=== PATIENT | male | born 1995 | race Caucasian/White ===

== ENCOUNTER 2020-02-23 10:58 | Outpatient (REF) | payer OTHER, SELFPAY | END 2020-02-23 10:59 | disposition home or self-care (01) | LOC: HO.LAB 10:58 | PROVIDERS: Visit Provider Internal Medicine | DX: Z20.828 Contact with and (suspected) exposure to other viral communicable diseases (principal) | CPT/HCPCS: 87635 ==

== ENCOUNTER 2020-03-05 13:42 | Outpatient (REF) | payer OTHER, SELFPAY | END 2020-03-05 13:43 | disposition home or self-care (01) | LOC: HO.LAB 13:42 | PROVIDERS: Visit Provider Internal Medicine | DX: Z20.828 Contact with and (suspected) exposure to other viral communicable diseases (principal) | CPT/HCPCS: C9803; U0003 ==

== ENCOUNTER 2020-03-15 14:53 | Outpatient (REF) | payer OTHER, SELFPAY | END 2020-03-15 14:54 | disposition home or self-care (01) | LOC: HO.LAB 14:53 | PROVIDERS: PCP Nurse Practitioner Family; Visit Provider Internal Medicine | DX: Z20.828 Contact with and (suspected) exposure to other viral communicable diseases (principal) | CPT/HCPCS: C9803; U0003 ==

== ENCOUNTER 2020-05-27 19:19 | Outpatient (REF) | payer OTHER, SELFPAY ==
--- NOTE | 2020-05-27 19:40 | MR_ITS ---
EXAMINATION: MR LUMBAR SPINE WITHOUT CONTRAST CLINICAL INFORMATION: Low back pain. Bilateral lower extremity pain and numbness. COMPARISON: CT scan of the lumbar spine 01/31/2017. TECHNIQUE: MRI of the lumbar spine was obtained using routine sequences without contrast. FINDINGS: Alignment is normal. Vertebral heights are preserved. No acute bone marrow signal changes. Intervertebral disc height and signal intensity is maintained at all levels. Annular contours are normal and there is no canal or neuroforaminal compromise. No mass effect on the traversing or foraminal nerve roots. The tip of the conus medullaris is located at L1-L2. No mass effect on the conus. Visualized distal cord signal intensity is normal. Limited visualization the retroperitoneal anatomy reveals no abnormal finding. Psoas and paraspinal muscle groups are symmetric. MR/MR lumbar spine wo con IMPRESSION: Normal MRI of the lumbar spine.
== END 2020-05-27 19:20 | disposition home or self-care (01) ==
LOC: HO.MRI 19:19
PROVIDERS: PCP Nurse Practitioner Family; Visit Provider Nurse Practitioner Family
DX: M54.5 Low back pain (principal); M54.10 Radiculopathy, site unspecified
CPT/HCPCS: 72148

== ENCOUNTER 2020-09-29 10:52 | Outpatient (REF) | payer OTHER, SELFPAY ==
[2020-09-29 13:17] LABS: MANUAL DIFF FLAG NO
[2020-09-29 13:32] LABS: Basophils Absolute Auto 0.1 X10*3/uL (0.0-0.2); Basophils Percent Auto 1.3 % (0-2); Eosinophils Absolute Auto 0.1 X10*3/uL (0.0-0.4); Eosinophils Percent Auto 1.6 % (0-4); Hemoglobin 14.6 g/dl (14.0-18.0); Imm Gran Abs Auto 0.03 X10*3/uL (0.00-0.03); Imm Gran Pct Auto 0.5 % (0.0-0.4); Lymphocytes Absolute Auto 2.1 X10*3/uL (1.2-4.9); Lymphocytes Percent Auto 33.9 % (20-40); Mean Corpuscular HGB Conc 32.4 g/dl (31.0-36.0); Mean Corpuscular Hemoglobin 30.5 pg (27.0-33.0); Mean Corpuscular Volume 94.1 fL (80-98); Mean Platelet Volume 10.1 fL (9.4-12.4); Monocytes Absolute Auto 0.5 X10*3/uL (0.1-1.2); Monocytes Percent Auto 8.6 % (2-11); Neutrophils Absolute Auto 3.4 X10*3/uL (2.0-8.3); Neutrophils Percent Auto 54.1 % (45-73); Platelet Count 260 X10*3/uL (160-400); Red Blood Count 4.78 X10*6/uL (4.60-5.80); White Blood Count 6.3 X10*3/uL (4.8-10.8)
[2020-09-29 14:06] LABS: Alanine Aminotransferase 161 U/L (0-40); Albumin Level 4.6 g/dL (3.5-5.0); Alkaline Phosphatase 76 U/L (39-117); Aspartate Amino Transferase 55 U/L (5-37); Bilirubin Direct 0.2 mg/dL (0.0-0.5); Bilirubin Total 0.6 mg/dL (0.0-1.0); Iron 58 mcg/dL (45-160); Percent Iron Saturation 19 % (15-50); Total Iron Binding Capacity 311 mcg/dL (228-428); Total Protein 7.8 g/dL (6.5-8.0); Unsaturated Iron Binding 253 ug/dL
[2020-09-29 14:20] LABS: Ferritin 259 ng/mL (20-250)
[2020-10-02 00:11] LABS: Anti Nuclear Antibody Screen POSITIVE (NEGATIVE)
[2020-10-02 13:27] LABS: Mitochondrial Antibodies NEGATIVE (NEGATIVE)
[2020-10-05 11:32] LABS: Smooth Muscle Antibody <20 U (<20)
== END 2020-09-29 10:53 | disposition home or self-care (01) ==
LOC: HO.10HDL 10:52
PROVIDERS: PCP Nurse Practitioner Family; Visit Provider Internal Medicine Gastroenterology
DX: R79.89 Other specified abnormal findings of blood chemistry (principal)
CPT/HCPCS: 36415; 80076; 82728; 83540; 85025; 86038; 86039; 86255; 86256

== ENCOUNTER 2020-12-18 11:01 | Outpatient (REF) | payer OTHER, SELFPAY ==
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
== END 2020-12-18 11:02 | disposition home or self-care (01) ==
LOC: HO.HMGCX 11:01
PROVIDERS: PCP Nurse Practitioner Family; Visit Provider Nurse Practitioner Family
DX: Z13.89 Encounter for screening for other disorder (principal)
CPT/HCPCS: 72040

== ENCOUNTER → 2021-01-07 10:12 | Outpatient (BNVA) | payer OTHER, SELFPAY | PROVIDERS: PCP Nurse Practitioner Family; Visit Provider Surgery ==

== ENCOUNTER → 2021-02-08 09:54 | Outpatient (BNVA) | payer SELFPAY | PROVIDERS: PCP Nurse Practitioner Family; Referring Provider Nurse Practitioner Family; Visit Provider Surgery | DX: L05.01 Pilonidal cyst with abscess (principal) | CPT/HCPCS: 99212 ==

== ENCOUNTER 2021-06-25 12:42 | Outpatient (REF) | payer OTHER, SELFPAY ==
[2021-06-25 13:07] LABS: Binax Internal Control QC Valid; Binax Now Covid-19 Ag Negative (Negative)
== END 2021-06-25 12:43 | disposition home or self-care (01) ==
LOC: HO.HMGCLDS 12:42
PROVIDERS: PCP Nurse Practitioner Family; Visit Provider Physician Assistant Medical
DX: Z13.89 Encounter for screening for other disorder (principal)

== ENCOUNTER 2021-07-06 11:46 | Outpatient (REF) | payer OTHER, SELFPAY ==
[2021-07-06 13:57] LABS: Hematocrit 47.9 % (42.0-52.0); Hemoglobin 15.4 g/dl (14.0-18.0); Mean Corpuscular HGB Conc 32.2 g/dl (31.0-36.0); Mean Corpuscular Hemoglobin 30.3 pg (27.0-33.0); Mean Corpuscular Volume 94.1 fL (80.0-98.0); Platelet Count 253 X10*3/uL (160-400); Red Blood Count 5.09 X10*6/uL (4.60-5.80); White Blood Count 6.3 X10*3/uL (4.8-10.8)
[2021-07-06 14:38] LABS: Alanine Aminotransferase 155 U/L (0-40); Albumin Level 4.6 g/dL (3.5-5.0); Alkaline Phosphatase 87 U/L (39-117); Aspartate Amino Transferase 85 U/L (5-37); Bilirubin Direct 0.3 mg/dL (0.0-0.5); Bilirubin Total 0.8 mg/dL (0.0-1.0); Blood Urea Nitrogen 10 mg/dL (9-16); Estimated Glomerular Filt Rate > 60; Lipase 24 U/L (8-78); Total Protein 7.9 g/dL (6.5-8.0)
== END 2021-07-06 11:47 | disposition home or self-care (01) ==
LOC: HO.10HDL 11:46
PROVIDERS: Absent Provider Nurse Practitioner Family; Referring Provider Nurse Practitioner Family; Visit Provider Internal Medicine Gastroenterology
DX: R10.9 Unspecified abdominal pain (principal); R19.4 Change in bowel habit
CPT/HCPCS: 36415; 80076; 82565; 83690; 84520; 85027

== ENCOUNTER 2021-08-09 13:04 | Outpatient (REF) | payer OTHER, SELFPAY ==
--- NOTE | ~2021-08-09 | CT_ITS ---
EXAMINATION: CT ABDOMEN AND PELVIS WITH CONTRAST CLINICAL INFORMATION: Generalized abdominal pain. COMPARISON: Ultrasound abdomen 01/26/2020. TECHNIQUE: Multidetector volumetric images were obtained from the superior aspect of the liver through the pubic symphysis following administration 85 mL of Omnipaque 350 intravenous contrast. Sagittal and coronal reformatted images were obtained on the technologist's workstation. Oral contrast: No This CT examination was performed using dose optimization techniques as appropriate, variously including the following: *Automated exposure control *Adjustment of mA and/or kV according to patient size (this includes techniques or standardized protocols for targeted exams where dose is matched to indication/reason for exam; i.e. extremities or head) *Use of iterative reconstruction technique DLP: 1534 mGy-cm. FINDINGS: LUNG BASES: The visualized lung bases are unremarkable. LIVER, GALLBLADDER, AND BILIARY TREE: The liver is enlarged in size measuring 19 cm in craniocaudad length. It has a normal shape with diffuse hypoattenuation. No focal hepatic lesion or biliary ductal dilatation is present. The gallbladder is unremarkable with no evidence of radiopaque gallstones, gallbladder wall thickening, or obvious pericholecystic inflammatory changes. PANCREAS: Unremarkable. SPLEEN: Unremarkable. ADRENAL GLANDS: Unremarkable. KIDNEYS AND URETERS: The kidneys are normal in size, shape, and attenuation. No hydronephrosis, hydroureter, or calculi seen. No perinephric stranding. BLADDER: Unremarkable. GASTROINTESTINAL TRACT: There is scattered stool and gas seen throughout the colon without significant distention. The small bowel loops are normal caliber. Appendix is normal caliber. No inflammatory process seen in the abdomen. Small shotty lymph nodes seen in the right ileocecal region. ABDOMINAL WALL: There is a small umbilical hernia containing fat. LYMPH NODES: Normal. VASCULAR: Unremarkable. PELVIC VISCERA: The prostate gland is normal size with central gland calcifications. OSSEOUS STRUCTURES: No aggressive lytic or sclerotic process seen. CT/CT abdomen pelvis w con IMPRESSION: No acute intra-abdominal process seen. Diffuse hepatic steatosis with mild hepatomegaly. Fleischner guidelines were followed.
[2021-08-09] MEDS: iohexoL 350 MG/ML 100 ML INFUS..BTL IV (15:45)
== END 2021-08-09 13:05 | disposition home or self-care (01) ==
LOC: HO.CT 13:04
PROVIDERS: PCP Nurse Practitioner Family; Visit Provider Internal Medicine Gastroenterology
DX: R10.84 Generalized abdominal pain (principal); R19.4 Change in bowel habit
CPT/HCPCS: 74177; Q9967

== ENCOUNTER 2021-10-11 12:22 | Outpatient (REF) | payer OTHER, SELFPAY ==
--- NOTE | ~2021-10-11 | XR_ITS ---
EXAMINATION: XR THORACOLUMBAR SPINE CLINICAL INFORMATION: M54.6 - Pain in thoracic spine COMPARISON: CT abdomen and pelvis 08/09/2021, MR lumbar spine 05/27/2020. TECHNIQUE: Thoracic spine is imaged in 3 views. FINDINGS: Normal thoracic segmentation with 12 rib-bearing thoracic vertebrae of normal height and normal thoracic kyphosis. There is a borderline dextrocurvature midthoracic spine. No vertebral compression, spondylolisthesis, or destructive process, or paraspinal soft tissue swelling. Small Schmorl's nodes are seen inferior endplates midthoracic spine. Borderline disc narrowing mid thoracic spine. No erosive change. XR/XR thoracic spine 2V IMPRESSION: -Mild dextrocurvature. Borderline disc narrowing mid thoracic spine. -No vertebral compression, spondylolisthesis, or destructive process.
== END 2021-10-11 12:23 | disposition home or self-care (01) ==
LOC: HO.HMGCX 12:22
PROVIDERS: PCP Nurse Practitioner Family; Visit Provider Nurse Practitioner Family
DX: M54.6 Pain in thoracic spine (principal)
CPT/HCPCS: 72070

== ENCOUNTER 2021-12-13 13:07 | Outpatient (REF) | payer OTHER, SELFPAY ==
[2021-12-13 13:55] LABS: MANUAL DIFF FLAG NO
[2021-12-13 14:01] LABS: Basophils Absolute Auto 0.1 X10*3/uL (0.0-0.2); Basophils Percent Auto 1.4 % (0-2); Eosinophils Absolute Auto 0.1 X10*3/uL (0.0-0.4); Hematocrit 44.6 % (42.0-52.0); Hemoglobin 14.6 g/dl (14.0-18.0); Imm Gran Abs Auto 0.06 X10*3/uL (0.00-0.03); Imm Gran Pct Auto 0.8 % (0.0-0.4); Lymphocytes Percent Auto 28.5 % (20-40); Mean Corpuscular HGB Conc 32.7 g/dl (31.0-36.0); Mean Corpuscular Hemoglobin 30.9 pg (27.0-33.0); Mean Corpuscular Volume 94.3 fL (80.0-98.0); Mean Platelet Volume 9.9 fL (9.4-12.4); Monocytes Absolute Auto 0.7 X10*3/uL (0.1-1.2); Monocytes Percent Auto 9.9 % (2-11); Neutrophils Absolute Auto 4.1 x10*3/uL (2.0-8.3); Neutrophils Percent Auto 57.4 % (45-73); Platelet Count 231 X10*3/uL (160-400); Red Blood Count 4.73 X10*6/uL (4.60-5.80); Red Cell Distribution Width 13.4 % (11.0-16.0); White Blood Count 7.2 X10*3/uL (4.8-10.8)
[2021-12-13 14:08] LABS: Estimated Average Glucose 166 mg/dL; Hemoglobin A1c % 7.4 %
[2021-12-13 14:33] LABS: Alanine Aminotransferase 175 U/L (0-40); Albumin Level 4.8 g/dL (3.5-5.0); Alkaline Phosphatase 90 U/L (39-117); Anion Gap 15 (12-20); Aspartate Amino Transferase 72 U/L (5-37); Bilirubin Total 0.4 mg/dL (0.0-1.0); Blood Urea Nitrogen 11 mg/dL (9-16); Carbon Dioxide 30 mmol/L (22-29); Chloride 101 mmol/L (96-108); Estimated Glomerular Filt Rate > 60; Glucose Fasting 143 mg/dL (60-99); Potassium 4.5 mmol/L (3.3-5.1); Sodium 141 mmol/L (135-145); Total Protein 8.2 g/dL (6.5-8.0)
[2021-12-13 14:45] LABS: TSH reflex Free T4 3.08 uIU/mL (0.32-4.0)
== END 2021-12-13 13:08 | disposition home or self-care (01) ==
LOC: HO.HMGCLDS 13:07
PROVIDERS: PCP Nurse Practitioner Family; Visit Provider Nurse Practitioner Family
DX: R73.01 Impaired fasting glucose (principal)
CPT/HCPCS: 36415; 80053; 83036; 84443; 85025

== ENCOUNTER 2021-12-20 17:00 | Outpatient (RCR) | payer OTHER, SELFPAY ==
--- NOTE | 2021-11-08 19:11 | MHC.PT.EP ---
[facility] [place] Office [place] Office [place] Office [address] [phone] F: [phone] F: [phone] F: [phone] F: [phone] Physical Therapy Plan of Care Date of Evaluation: Date of Surgery: Diagnosis: Thoracic pain. Assessment: Pt is 26 y/o L handed male referred to PT for eval and treat of thoracic pain resulting in decreased tolerance and ability for lifting, bending his back, performing heavy work tasks with L UE, disturbed sleep and, augmented self care secondary to decreased thoracic ROM, increased L > R thoracic mm tissue tension, TTP of L scapulothoracic area, L UE radicular Sx, and pain. Pt is deemed an appropriate candidate to receive skilled PT in order to address his physical limitations to improve his functional ability. Frequency and Duration: The patient will be seen 2 x/ wk x 5 wks. Short Term Goals: Initiate HEP. Improve baseline pain to < 4/10. Residential Goals: I with home program. Pt will no linger be disturbed of sleep d/t thoracic pain. L UE radicular Sx abolished. Pt will no longer have to modify how he performs personal care d/t thoracic pain. Treatment Plan: Modalities to reduce pain, spasms and effusion. Manual therapy to restore motion and function. Therapeutic exercise to improve strength and flexibility. Neuromuscular re-education for posture and balance. Therapeutic activities to return to functional activities of daily living. Electronically signed by: Russ Almaguer PT. Please sign and return to therapist. Thank you for your referral.
--- NOTE | 2021-12-20 19:01 | MHC.PT.DC ---
[facility] [place] Office [place] Office [place] Office [address] Miguel [address] [phone] F: [phone] F: [phone] F: [phone] F: [phone] Physical Therapy Discharge Report Diagnosis: Thoracic pain. Date of Surgery: Date of Evaluation: 11/08/21 Date of Discharge: 12/20/21 Treatments to Date: 9 Cancellations to Date: No Shows to Date: Discharge Status: Independent with HEP Recommend MD Follow-up Discharge Summary: Osmar has been an active and motivated participant in his therapy in and out of the clinic and although he has gained a few strategies and exercises that are helpful temporarily he persists with limiting T-spine pain; his outcome measure is largely unchanged from his evaluation and is recommended to follow up with his MD for his ongoing condition. Electronically signed by: Russ Almaguer PT. Please sign and return to therapist. Thank you for your referral.
== END 2021-12-20 19:04 | disposition home or self-care (01) ==
LOC: HO.PTCHIC 17:00
PROVIDERS: PCP Nurse Practitioner Family; Visit Provider Nurse Practitioner Family
DX: M54.6 Pain in thoracic spine (principal)
CPT/HCPCS: 97014; 97110; 97140; 97161

== ENCOUNTER 2022-06-22 11:02 | Outpatient (REF) | payer OTHER, SELFPAY ==
[2022-06-22 13:59] LABS: MANUAL DIFF FLAG NO
[2022-06-22 14:23] LABS: Basophils Absolute Auto 0.1 X10*3/uL (0.0-0.2); Basophils Percent Auto 1.8 % (0-2); Eosinophils Absolute Auto 0.2 X10*3/uL (0.0-0.4); Eosinophils Percent Auto 3.2 % (0-4); Hemoglobin 14.9 g/dl (14.0-18.0); Imm Gran Abs Auto 0.07 X10*3/uL (0.00-0.03); Imm Gran Pct Auto 1.1 % (0.0-0.4); Lymphocytes Absolute Auto 1.8 X10*3/uL (1.2-4.9); Lymphocytes Percent Auto 29.3 % (20-40); Mean Corpuscular HGB Conc 33.1 g/dl (31.0-36.0); Mean Corpuscular Hemoglobin 31.2 pg (27.0-33.0); Mean Corpuscular Volume 94.3 fL (80.0-98.0); Mean Platelet Volume 10.4 fL (9.4-12.4); Monocytes Absolute Auto 0.6 X10*3/uL (0.1-1.2); Neutrophils Absolute Auto 3.5 x10*3/uL (2.0-8.3); Neutrophils Percent Auto 55.6 % (45-73); Platelet Count 232 X10*3/uL (160-400); Red Blood Count 4.77 X10*6/uL (4.60-5.80); Red Cell Distribution Width 13.4 % (11.0-16.0); White Blood Count 6.2 X10*3/uL (4.8-10.8)
[2022-06-22 14:37] LABS: Estimated Average Glucose 146 mg/dL; Hemoglobin A1c % 6.7 %
[2022-06-22 15:10] LABS: Alanine Aminotransferase 149 U/L (0-40); Albumin Level 4.4 g/dL (3.5-5.0); Alkaline Phosphatase 76 U/L (39-117); Anion Gap 12 (12-20); Aspartate Amino Transferase 58 U/L (5-37); Bilirubin Total 0.6 mg/dL (0.0-1.0); Blood Urea Nitrogen 9 mg/dL (9-16); Calcium 9.5 mg/dL (8.4-10.2); Carbon Dioxide 28 mmol/L (22-29); Chloride 106 mmol/L (96-108); Cholesterol 205 mg/dL; Estimated Glomerular Filt Rate > 60; Glucose Fasting 168 mg/dL (60-99); HDL Cholesterol 43 mg/dL; LDL Cholesterol Calculated 137 mg/dl; Potassium 4.3 mmol/L (3.3-5.1); Sodium 142 mmol/L (135-145); Total Protein 7.5 g/dL (6.5-8.0); Triglycerides 129 mg/dL
== END 2022-06-22 11:03 | disposition home or self-care (01) ==
LOC: HO.HMGCLDS 11:02
PROVIDERS: PCP Nurse Practitioner Family; Visit Provider Nurse Practitioner Family
DX: E11.9 Type 2 diabetes mellitus without complications (principal)
CPT/HCPCS: 36415; 80053; 80061; 83036; 84443; 85025

== ENCOUNTER 2022-11-29 13:08 | Day surgery (SDC) | payer OTHER, SELFPAY ==
[2022-11-29 14:03] VITALS: BP 134/81; PULSE 72; RESP 18; TEMP 36.6; O2SAT 95; BMI 48.8
[2022-11-29 14:15] LABS: Glucose, Whole Blood 151 mg/dL (60-115)
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
--- NOTE | 2022-11-29 14:25 | MHC.SHP ---
Pre-Procedural Eval Section A Date of Service: 11/29/22 The patient is an INPATIENT: No Changes since office visit: No Cold of Flu in the past 2 weeks, No New Medical Problems, No Changes in Medication and No Patient answered all questions The History & Physical has been completed within 30 days and I have reviewed it.: Yes Section B Chief Complaint: Hemorrhage of anus and rectum Allergies: Allergies Allergy/AdvReac Type Severity Reaction Status Date / Time No Known Allergies Allergy Verified 03/27/22 10:24 [No Known Allergies*] Plan I have reviewed the history and physical and performed a pertinent physical examination on my patient. No changes have occurred unless specified. Time Spent With Patient Time: Total time managing care of this patient today ____ minutes.
[2022-11-29] MEDS: Lactated Ringers 1,000 ML 100 ML IVCONT (14:33)
[2022-11-29 15:18] VITALS: BP 115/72; PULSE 79; RESP 16; TEMP 37.1; O2SAT 97
[2022-11-29 15:32] VITALS: BP 110/74; PULSE 80; RESP 20; O2SAT 95
[2022-11-29 15:47] VITALS: BP 116/83; PULSE 77; RESP 20; TEMP 36.8; O2SAT 96
--- NOTE | 2022-11-29 22:24 | OP_ITS ---
DATE OF SERVICE: 11/29/2022 SURGEON: Miguelito Davidson MD INDICATIONS: Rectal bleeding. PREOPERATIVE DIAGNOSIS: POSTOPERATIVE DIAGNOSIS: PROCEDURE PERFORMED: ESTIMATED BLOOD LOSS: COMPLICATIONS: ANESTHESIA: Monitored anesthesia care. ASSISTANTS: SPECIMENS: PROCEDURE: Colonoscopy to the terminal ileum with biopsy. DESCRIPTION OF PROCEDURE: A history and physical was performed. The risks and benefits of the procedure were explained to the patient. Informed consent was obtained. The patient was placed in the left lateral decubitus position. A digital rectal exam was performed and was found to be normal. The Olympus pediatric video colonoscope was introduced into the rectum and advanced to the cecum. The cecum was identified by transillumination, palpation, and identification of ileocecal valve. Examination was performed. The scope was removed. He tolerated the procedure well and was returned to the recovery area in stable condition. FINDINGS: The terminal ileum was examined and appeared normal. The visualized colonic mucosa was normal. The quality of the prep was good. No colitis was identified. Random sigmoid biopsies were obtained to rule out microscopic colitis. In the rectum were multiple less than 10 mL benign-appearing polyps consistent with hyperplastic polyps. Two of these were biopsied. Retroflexed examination did show some small internal hemorrhoids. IMPRESSION: 1. Rectal bleeding. 2. Colon polyps. RECOMMENDATION: Follow up the biopsy results. MD BRYAN Pizarro/SHARI / [id number]
== END 2022-11-29 15:57 | disposition home or self-care (01) ==
PROVIDERS: Visit Provider Internal Medicine Gastroenterology
PROC: 0DJD8ZZ Inspection of Lower Intestinal Tract, Via Natural or Artificial Opening Endoscopic (ICD-10-PCS; CPT 45378; principal; 2022-11-29 14:20)
DX: K62.5 Hemorrhage of anus and rectum (principal); K62.1 Rectal polyp; K64.8 Other hemorrhoids; K21.9 Gastro-esophageal reflux disease without esophagitis; N20.0 Calculus of kidney; E11.9 Type 2 diabetes mellitus without complications; Z79.84 Long term (current) use of oral hypoglycemic drugs; Z79.899 Other long term (current) drug therapy
CPT/HCPCS: 45380; 82947; 88305; J2765

== ENCOUNTER 2023-03-20 13:47 | Outpatient (AMB) | payer OTHER, SELFPAY ==
--- NOTE | 2023-03-20 14:04 | A.SPINEOV_ITS ---
Intake Intake Visit Reasons: Radiculopathy, lumbar region Intake Note: Mr. Montana is here today c/o low back pain. MRI done @ [facility]. Customer Engagement Analyst Required: No Allergies No Known Allergies [No Known Allergies*] Allergy (Verified 03/27/22 10:24) Assessment & Plan Assessment & Plan (1) Lumbar back pain: Code(s): M54.5 - Low back pain Plan Dear colleague Thank you for referring Osmar Montana to the office today with a chief complaint of low back pain. HPI: This 27-year-old male is having an 10 year history of low back pain. The pain is always present and increases with activity. The symptoms started when he was in the [employer] in 2012. The pain goes all through his back and neck and there is numbness in the lower half of his back when engaging in physical activity. No upper or lower extremity symptoms. He can not sleep on his back The following conservative treatment options were tried without success antiinflammatories, tylenol, physical therapy PMH: Diabetes type 2 Medications: Metformin, pantoprazole Allergies: NKDA Social history: Nonsmoker Physical Exam: Pleasant male. Flexion-extension of the lumbar spine are without restrictions. He states pain on extension. Straight leg raise is negative bilaterally. No neurological deficits from motor, sensation or reflexes. Radiological Studies: MRI done at [facility] was compared an MRI of the lumbar spine at [facility] of 2020 and shows no abnormalities, other than mild degeneration of the L4-5 facet joints bilaterally. The MRI of the thoracic spine is normal. Impression/Plan: This patient is suffering from chronic low back pain without a surgical cause. I would like to refer him to pain management to see if he is a candidate for facet blocks as he indicates that the pain increases with extension of the lumbar spine. Thank you for allowing me to participate in your patients care. total time spent was 30 minutes in counseling ,coordination of plan, personal review of imaging, surgical decision making and subsequent plan Ruddy Tan MD, PhD Spine Fellowship Trained Neurosurgeon Director, [facility] Orders: Referrals Pain Management Referral M54.5 - Low back pain Coding Level of Care Code New Pt Level 3 (83531) Diagnoses Lumbar back pain M54.5
== END 2023-03-20 14:25 | disposition home or self-care (01) ==
PROVIDERS: PCP Nurse Practitioner Family; Referring Provider Nurse Practitioner Family; Visit Provider Neurological Surgery
DX: M54.50 Low back pain, unspecified (principal)
CPT/HCPCS: 99203

== ENCOUNTER → 2023-03-20 13:47 | Outpatient (BNVA) | payer OTHER, SELFPAY | PROVIDERS: PCP Nurse Practitioner Family; Referring Provider Nurse Practitioner Family; Visit Provider Neurological Surgery ==

== ENCOUNTER 2023-05-14 08:20 | Outpatient (AMB) | payer OTHER, SELFPAY ==
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
[2023-05-14 08:38] VITALS: BP 141/85; PULSE 82; RESP 12; BMI 49.2
== END 2023-05-14 09:05 | disposition home or self-care (01) ==
PROVIDERS: PCP Nurse Practitioner Family; Visit Provider Internal Medicine
DX: M47.816 Spondylosis without myelopathy or radiculopathy, lumbar region (principal); M54.9 Dorsalgia, unspecified
CPT/HCPCS: 99204

== ENCOUNTER → 2023-05-14 08:20 | Outpatient (BNVA) | payer OTHER, SELFPAY | PROVIDERS: PCP Nurse Practitioner Family; Visit Provider Internal Medicine ==

== ENCOUNTER 2023-06-07 06:07 | Outpatient (REF) | payer OTHER, SELFPAY ==
--- NOTE | ~2023-06-07 | FL_ITS ---
EXAMINATION: XR FLUOROSCOPY WITH IMAGES CLINICAL INFORMATION: Bilateral medial cluneal nerve stimulation trial. , Reason for Exam M47.816 - Spondylosis without myelopathy or radiculopathy, lumbar region. COMPARISON: None available. TECHNIQUE: Fluoroscopy Supervised By: Kenny Fluoroscopy Time: 0.2 minutes minutes. Cumulative Dose air kerma: 22.3 mGy. # Images: 5. FINDINGS: Images demonstrate facet joint injections bilaterally at L4-L5. FL/FL guidance in treatment room IMPRESSION: Please refer to combination machine tool operator's procedure note for full study description and findings.
[2023-06-07 09:36] LABS: MANUAL DIFF FLAG NO
[2023-06-07 10:08] LABS: Basophils Absolute Auto 0.1 X10*3/uL (0.0-0.2); Basophils Percent Auto 1.4 % (0-2); Eosinophils Absolute Auto 0.2 X10*3/uL (0.0-0.4); Hematocrit 45.4 % (42.0-52.0); Hemoglobin 15.2 g/dl (14.0-18.0); Imm Gran Abs Auto 0.06 X10*3/uL (0.00-0.03); Lymphocytes Absolute Auto 1.6 X10*3/uL (1.2-4.9); Lymphocytes Percent Auto 27.6 % (20-40); Mean Corpuscular HGB Conc 33.5 g/dl (31.0-36.0); Mean Corpuscular Hemoglobin 30.8 pg (27.0-33.0); Mean Corpuscular Volume 91.9 fL (80.0-98.0); Mean Platelet Volume 10.4 fL (9.4-12.4); Monocytes Absolute Auto 0.5 X10*3/uL (0.1-1.2); Monocytes Percent Auto 9.3 % (2-11); Neutrophils Absolute Auto 3.3 x10*3/uL (2.0-8.3); Neutrophils Percent Auto 57.7 % (45-73); Platelet Count 180 X10*3/uL (160-400); Red Blood Count 4.94 X10*6/uL (4.60-5.80); White Blood Count 5.7 X10*3/uL (4.8-10.8)
[2023-06-07 10:19] LABS: Estimated Average Glucose 246 mg/dL; Hemoglobin A1c % 10.2 % (<6.0)
[2023-06-07 10:43] LABS: Alanine Aminotransferase 200 U/L (0-40); Albumin Level 4.6 g/dL (3.5-5.0); Alkaline Phosphatase 96 U/L (39-117); Anion Gap 13 (12-20); Aspartate Amino Transferase 82 U/L (5-37); Bilirubin Total 0.6 mg/dL (0.0-1.0); Blood Urea Nitrogen 11 mg/dL (9-16); Calcium 9.9 mg/dL (8.4-10.2); Carbon Dioxide 26 mmol/L (22-29); Chloride 102 mmol/L (96-108); Cholesterol 253 mg/dL (<200); Estimated Glomerular Filt Rate > 60; Glucose Fasting 286 mg/dL (60-99); HDL Cholesterol 35 mg/dL (>40); Sodium 137 mmol/L (135-145); Total Protein 8.4 g/dL (6.5-8.0); Triglycerides 442 mg/dL (<150)
[2023-06-07 10:55] LABS: Appearance Urine Clear; Color Urine Yellow; Glucose Urine UA >=1000 mg/dL (Negative); Leukocyte Esterase Urine Negative (Negative); Nitrite Urine Negative (Negative); Specific Gravity - Urine >= 1.030 (1.005-1.025); UMIC TRIGGER UACC YES; Urine Blood Negative (Negative); Urine Ketones Trace mg/dL (Negative); Urine Protein Negative (Neg-Trace)
[2023-06-07 11:01] LABS: Bacteria Urine None Seen (None Seen); Hyaline Casts Urine 0-2 /LPF (0-2); RBC Urine 0-2 /HPF (0-2); Squamous Epithelial Cell Urine 0-2 /HPF (0-2); WBC Urine 0-5 /HPF (0-5)
[2023-06-07 11:03] LABS: TSH reflex Free T4 2.48 uIU/mL (0.32-4.0)
[2023-06-07 12:08] LABS: Creatinine Urine 87.74 mg/dL; Microalbum/Creatinine Ratio Ur 31.9 ug/mg cr (<30)
== END 2023-06-07 06:08 | disposition home or self-care (01) ==
LOC: CF 06:07
PROVIDERS: Nurse Practitioner Family; Visit Provider Internal Medicine
DX: M47.816 Spondylosis without myelopathy or radiculopathy, lumbar region (principal); M54.9 Dorsalgia, unspecified; E11.9 Type 2 diabetes mellitus without complications
CPT/HCPCS: 36415; 64493; 64494; 80053; 80061; 81001; 82043; 82570; 83036; 84443; 85025; J2795; Q9967

== ENCOUNTER 2023-06-07 08:46 | Outpatient (AMB) | payer OTHER, SELFPAY ==
--- NOTE | 2023-06-07 08:44 | A.OFFVIS_ITS ---
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 Denies any recent cough, cold, infection, fever or other significant changes in medical history since last office visit. [facility] Medical History Bulging discs Fatty liver Kidney stones Positive autoantibody screening for celiac disease Tinnitus, bilateral Surgical History H/O endoscopy History of wisdom tooth extraction No pertinent past surgical history Family History Father No problems noted. Mother No problems noted. Social History Housing: House Alcohol intake: current Alcohol intake frequency: a few times a month Patient Tobacco Use Status: Never used Tobacco e-Cigarette/Vaping Use: Never Used Second Hand Smoke Exposure: Yes (at work ) service: Yes Current occupational status: employed Current occupation: [employer] Current occupational exposures/hazards: Yes Cognitive needs: No Hearing needs: No Vision needs: No Physical Exam Vital Signs: Last Vital Signs Pulse 76 06/07/23 09:22 Resp 16 06/07/23 09:22 BP 132/70 06/07/23 09:22 Pulse Ox 97 06/07/23 09:22 Oxygen Delivery Method Room Air 06/07/23 09:22 BMI result Body Mass Index 48.8 Office Procedures Lumbar/Sacral Facet Inj Details: Lumbar Medial Branch Block, bilateral L3, L4 medial branches and L5 Dorsal Ramus (2 levels, 3 nerves) After obtaining written consent, pre-procedure blood pressure and pulse were recorded and are in the nursing record for review. The patient was placed in a prone position. The respective lumbosacral area was prepped with chloraprep and draped in sterile fashion. The skin over the target medial branch nerves was anesthetized with 0.5% lidocaine. A 22 gauge 5 inch needle was inserted into the target medial branch nerve under fluoroscopic guidance. No paresthesias were elicited with needle placement and aspiration was negative for blood and CSF. Next, 0.2cc of omnipaque 180 was injected to verify positioning. Next 0.5 ml 0.5% ropivicaine was injected (0.5cc total per level). The identical procedure was performed at the remaining levels. The skin was cleansed and a sterile bandage was applied. Following the procedure the patient's vital signs were stable. The patient tolerated the procedure well and no complications were encountered. Following the procedure the patient's vital signs were stable. The patient was discharged home in good condition with post-procedural instructions. Time Out: Immediately prior to the procedure, the following was verbally confirmed that there is a signed consent form and that the correct patient, planned procedure, site and side are consistent with documentation and that necessary equipment and/or blood products are available prior to the start of the case. Complications: none EBL: <5 cc 81322 - second level, with Fluoroscopy (Bilateral) Procedure code (CPT) selection complete Assessment & Plan Assessment & Plan (1) Intractable back pain: Code(s): M54.9 - Dorsalgia, unspecified (2) Lumbar spondylosis: Code(s): M47.816 - Spondylosis without myelopathy or radiculopathy, lumbar region Plan Patient is status post bilateral L3, L4 medial branches and L5 dorsal ramus diag nostic blocks. Patient tolerated procedure well and was discharged home in stable condition with discharge instructions. All questions were answered. We will follow-up via telephone or in clinic to assess response to therapy. A follow-up appointment was made during today's visit. Orders: Orders FL guidance in treatment room Today M47.816 - Spondylosis without myelopathy or radiculopathy, lumbar region Coding Level of Care Code Procedure Only Diagnoses Intractable back pain M54.9 Lumbar spondylosis M47.816 CPT Codes Facet Injection-Lumbar/Sacral - CPT: 99855 - second level, with Fluoroscopy ([id number])
[2023-06-07 08:49] VITALS: BP 132/60; PULSE 85; RESP 16; O2SAT 96; BMI 48.8
[2023-06-07 09:22] VITALS: BP 132/70; PULSE 76; RESP 16; O2SAT 97; BMI 48.8
== END 2023-06-07 09:17 | disposition home or self-care (01) ==
LOC: HO.PMCPRC 08:46
PROVIDERS: PCP Nurse Practitioner Family; Visit Provider Internal Medicine
DX: M47.816 Spondylosis without myelopathy or radiculopathy, lumbar region (principal)
CPT/HCPCS: 64493; 64494

== ENCOUNTER 2023-06-13 08:58 | Outpatient (AMB) | payer OTHER, SELFPAY ==
[2023-06-13 09:11] VITALS: BP 128/82; PULSE 80; RESP 12; BMI 48.8
--- NOTE | 2023-06-13 09:11 | A.OFFVIS_ITS ---
Intake Vital Signs 06/13/23 09:11 Height 5 ft 11 in Weight 350 lb BMI 48.8 BP 128/82 Blood Pressure Location Lt radial Position Sitting Respiration 12 Pulse 80 Pulse Source Pulse Oximeter Intake Visit Reasons: s/p Gil Dx L3-L4-L5 MBB/CONFIRMED Allergies No Known Allergies [No Known Allergies*] Allergy (Verified 06/13/23 09:14) Medication List - Last Reconciled 06/13/23 by Stephanie Pimentel LPN alcohol swabs (Alcohol Prep Pads) 1 pad topically; blood-glucose meter (FreeStyle Lite Meter kit) test BID FreeStyle Lite Strips (blood sugar diagnostic) test BID NS lancets (FreeStyle Lancets) test BID metformin ER 1,000 mg (2 x 500 mg) PO BID 90 days pantoprazole 40 mg PO DAILY sertraline 25 mg PO BEDTIME HPI s/p Gil Dx L3-L4-L5 MBB/CONFIRMED HPI Details 28-year-old male who presents today to t he office visit for s/p bilateral diagnostic L3-L4-L5 medial-branch block. The patient reports 60?70% relief following the procedure for one day. He states that his pain has started to return to baseline since Sunday but it is still not as bad as his usual constant, dull pain. He has a history of diabetes mellitus. His last HbA1C was 10.2. He was recently referred to a new provider for the management of diabetes mellitus. [facility] Medical History Bulging discs Fatty liver Kidney stones Positive autoantibody screening for celiac disease Tinnitus, bilateral Surgical History H/O endoscopy History of wisdom tooth extraction No pertinent past surgical history Family History Father No problems noted. Mother No problems noted. Social History Housing: House Alcohol intake: current Alcohol intake frequency: a few times a month Patient Tobacco Use Status: Never used Tobacco e-Cigarette/Vaping Use: Never Used Second Hand Smoke Exposure: Yes (at work ) service: Yes Current occupational status: employed Current occupation: [employer] Current occupational exposures/hazards: Yes Cognitive needs: No Hearing needs: No Vision needs: No Review of Systems Const All systems reviewed & are unremarkable except as noted in HPI and below Physical Exam Vital Signs: Last Vital Signs Pulse 80 06/13/23 09:11 Resp 12 06/13/23 09:11 BP 128/82 06/13/23 09:11 BMI result Body Mass Index 48.8 General: Appears afebrile. Alert and oriented. Mood and affect appropriate. Follows and participates in conversation appropriately. Respiratory effort is unlabored. Able to transition from sit to stand unassisted. Results Reviewed Results Reviewed: No imaging is available for review Assessment & Plan Assessment & Plan (1) Intractable back pain: Code(s): M54.9 - Dorsalgia, unspecified (2) Lumbar spondylosis: Code(s): M47.816 - Spondylosis without myelopathy or radiculopathy, lumbar region Plan The patient will call to let us know whenever his pain starts to come back up again, and then we will consider either repeating diagnostic facet blocks or a trial of peripheral nerve stimulation, depending on the relief that he gets from this last injection. He is not an ideal candidate for cortisone injections given his history of diabetes mellitus. Scribed for Dr. Blackwell by Valerie Forbes, medical records specialist, on 06/13/2023. I, Dr. Blackwell, have personally reviewed and agree with the information entered by the scribe. Coding Level of Care Code Est Pt Level 3 (96339) Diagnoses Intractable back pain M54.9 Lumbar spondylosis M47.816
== END 2023-06-13 09:37 | disposition home or self-care (01) ==
LOC: HO.PMC 08:58
PROVIDERS: PCP Nurse Practitioner Family; Referring Provider Neurological Surgery; Visit Provider Internal Medicine
DX: M54.9 Dorsalgia, unspecified (principal); M47.816 Spondylosis without myelopathy or radiculopathy, lumbar region
CPT/HCPCS: 99213

== ENCOUNTER → 2023-06-13 08:58 | Outpatient (BNVA) | payer OTHER, SELFPAY | PROVIDERS: PCP Nurse Practitioner Family; Referring Provider Neurological Surgery; Visit Provider Internal Medicine ==

== ENCOUNTER 2024-07-15 10:33 | Outpatient (REF) | payer OTHER, SELFPAY ==
[2024-07-15 13:02] LABS: MANUAL DIFF FLAG NO
[2024-07-15 13:29] LABS: Basophils Absolute Auto 0.1 X10*3/uL (0.0-0.2); Basophils Percent Auto 1.6 % (0-2); Eosinophils Absolute Auto 0.1 X10*3/uL (0.0-0.4); Hematocrit 43.8 % (42.0-52.0); Hemoglobin 14.3 g/dl (14.0-18.0); Imm Gran Abs Auto 0.03 X10*3/uL (0.00-0.03); Imm Gran Pct Auto 0.6 % (0.0-0.4); Lymphocytes Absolute Auto 1.4 X10*3/uL (1.2-4.9); Lymphocytes Percent Auto 28.6 % (20-40); Mean Corpuscular HGB Conc 32.6 g/dl (31.0-36.0); Mean Corpuscular Hemoglobin 30.2 pg (27.0-33.0); Mean Corpuscular Volume 92.6 fL (80.0-98.0); Mean Platelet Volume 10.3 fL (9.4-12.4); Monocytes Absolute Auto 0.4 X10*3/uL (0.1-1.2); Monocytes Percent Auto 8.9 % (2-11); Neutrophils Absolute Auto 2.9 x10*3/uL (2.0-8.3); Neutrophils Percent Auto 58.3 % (45-73); Platelet Count 179 X10*3/uL (160-400); Red Blood Count 4.73 X10*6/uL (4.60-5.80); Red Cell Distribution Width 13.4 % (11.0-16.0); White Blood Count 4.9 X10*3/uL (4.8-10.8)
[2024-07-15 13:46] LABS: Alkaline Phosphatase 93 U/L (39-117); Anion Gap 15 (12-20); Aspartate Amino Transferase 76 U/L (5-37); Bilirubin Total 0.6 mg/dL (0.0-1.0); Blood Urea Nitrogen 9 mg/dL (9-16); Calcium 10.5 mg/dL (8.4-10.2); Carbon Dioxide 29 mmol/L (22-29); Chloride 108 mmol/L (96-108); Cholesterol 257 mg/dL (<200); Estimated Glomerular Filt Rate > 60; Glucose Fasting 288 mg/dL (60-99); HDL Cholesterol 39 mg/dL (>40); LDL Cholesterol Calculated 140 mg/dL (<100); Potassium 4.6 mmol/L (3.3-5.1); Sodium 147 mmol/L (135-145); Total Protein 9.2 g/dL (6.5-8.0); Triglycerides 391 mg/dL (<150)
[2024-07-15 13:58] LABS: Appearance Urine Clear; Color Urine Dark Yellow; Glucose Urine UA 500 mg/dL (Negative); Leukocyte Esterase Urine Negative (Negative); Nitrite Urine Negative (Negative); PH 6.5 (5.0-9.0); Specific Gravity - Urine >= 1.030 (1.005-1.025); Urine Blood Negative (Negative); Urine Ketones 15 mg/dL (Negative); Urine Protein Trace mg/dL (Neg-Trace)
[2024-07-15 14:08] LABS: Creatinine Urine 82.54 mg/dL; Microalbum/Creatinine Ratio Ur 87.2 ug/mg cr (<30)
[2024-07-15 14:34] LABS: Alanine Aminotransferase 176 U/L (0-40)
[2024-07-15 15:13] LABS: TSH reflex Free T4 2.56 uIU/mL (0.32-4.0)
== END 2024-07-15 10:34 | disposition home or self-care (01) ==
LOC: HO.HMGCLDS 10:33
PROVIDERS: PCP Nurse Practitioner Family; Visit Provider Nurse Practitioner Family
DX: E11.65 Type 2 diabetes mellitus with hyperglycemia (principal)
CPT/HCPCS: 36415; 80053; 80061; 81003; 82043; 82570; 84443; 85025

== ENCOUNTER 2024-07-22 07:18 | Outpatient (AMB) | payer OTHER, SELFPAY ==
--- NOTE | 2024-07-22 07:34 | MHC.PC.OV ---
Intake Visit Reasons: lab review Allergies No Known Allergies [No Known Allergies*] Allergy (Verified 07/22/24 07:41) Medication List - Last Reconciled 07/22/24 by PEACE Rashid- alcohol swabs (Alcohol Prep Pads) 1 pad topically; amoxicillin-pot clavulanate 875-125 mg 1 tab PO BID 10 days blood-glucose meter (FreeStyle Lite Meter kit) test BID FreeStyle Lite Strips (blood sugar diagnostic) test BID NS lancets (FreeStyle Lancets) test BID metformin ER 1,000 mg (2 x 500 mg) PO BID 90 days pantoprazole 40 mg PO DAILY sertraline 25 mg PO BEDTIME Tobacco use date assessed: 03/27/22 HPI lab review HPI Details History of Present Illness The patient is a 29-year-old male presenting with uncontrolled diabetes management. He intermittently checks his blood glucose levels, which show poor control, and his fasting sugar is markedly elevated at 288 mg/dL. He acknowledges that his diet is not well-managed, contributing to difficulty in controlling his diabetes. While he denies any associated symptoms like chest pain or shortness of breath, he also has a history of fatty liver disease, noting a slight improvement in liver enzyme levels. Cholesterol, LDL, triglycerides levels are also elevated. Renal function appears unaffected based on recent tests. He denies experiencing neuropathy, polyuria, or polydipsia. He further reports difficulties in arranging in-person visits due to work constraints. Review of Systems - Cardiovascular: Denies chest pain. - Respiratory: Denies shortness of breath. - Constitutional: Denies fevers, chills, nodule. - Endocrine: Denies polyuria, polydipsia. - Neurological: Denies neuropathy. - Gastrointestinal: Denies vomiting. Plan Management of uncontrolled diabetes will include starting a GLP-1 agonist with weekly injections, monitoring for side effects. Due to elevated cholesterol and triglycerides, a prescription of atorvastatin 10 mg at night is indicated. Elevated calcium levels necessitate an ionized calcium and parathyroid hormone workup. A follow-up will occur in about two months to reassess lab work, including fasting glucose and liver enzymes. Emphasis was placed on the importance of diet control and monitoring, with particular stress on the long-term risks of inadequate management and elevated cholesterol levels. Discussion Notes I emphasized to the patient the critical importance of maintaining stringent control over blood glucose levels, which can significantly impact health over time. I explained the rationale behind using a GLP-1 agonist for diabetes management, highlighting its benefits alongside possible side effects. Concerning high cholesterol levels, I presented the advantages and anticipated outcomes of atorvastatin therapy, underlining potential risks and benefits. Concerns about elevated calcium were addressed with planned further investigations. I re-emphasized diet modification as a crucial intervention, elaborating on potential health risks of non-compliance, including mortality. Follow-up via telehealth in two to three months was agreed upon due to the patient's work constraints, and a subsequent lab review is planned in two months to monitor progress. Patient Instructions - Begin once-weekly GLP-1 agonist injections as prescribed. - Take atorvastatin 10 mg at night for cholesterol management. - Follow a strict diet as per recommendations to help control blood sugar and cholesterol. - Schedule a follow-up appointment in two to three months via telehealth. - Monitor any side effects and report them promptly. - Complete follow-up lab tests in approximately two months. - Be proactive in managing diabetes to prevent complications. [facility] Medical History Tinnitus, bilateral Positive autoantibody screening for celiac disease Fatty liver Kidney stones Bulging discs Surgical History H/O endoscopy History of wisdom tooth extraction No pertinent past surgical history Family History Father No problems noted. Mother No problems noted. Social History Housing: House Alcohol intake: current Alcohol intake frequency: a few times a month Patient Tobacco Use Status: Never used Tobacco e-Cigarette/Vaping Use: Never Used Second Hand Smoke Exposure: Yes (at work ) service: Yes Current occupational status: employed Current occupation: [employer] Current occupational exposures/hazards: Yes Cognitive needs: No Hearing needs: No Vision needs: No Questionnaire Thrive Questionnaire Date Thrive assessed: 07/28/21 AUDIT C Alcohol Use Questionnaire (AUDIT-C) 2. How many drinks containing alcohol do you have on a typical day when you are drinking?: 1 or 2 3. How often do you have six or more drinks on one occasion?: Less than monthly Total Score: 1 SAHARA-7 AMB Questionnaire SAHARA-7 Date SAHARA - 7 assessed: 07/28/21 Source: Developed by Drs. Braulio Michael, Nancy Pepe, Carlyle Herrmann and colleagues, with an educational robby from [employer]. Physical exam (Primary Care) Tobacco/Smoking Status: Tobacco use Status Tobacco use date assessed 03/27/22 03/27/22 10:26 Patient Tobacco Use Status Never used Tobacco 11/29/22 15:10 e-Cigarette/Vaping Use Never Used 03/27/22 10:26 Thrive Assessment: Date of Thrive Assessment Date Thrive assessed 07/28/21 03/27/22 10:26 Coding Level of Care Code Tele Est Pt Level 3 (89634) Diagnoses Poorly controlled diabetes mellitus E11.65 Dyslipidemia E78.5 Serum calcium elevated E83.52 Assessment & Plan Assessment & Plan (1) Poorly controlled diabetes mellitus: Code(s): E11.65 - Type 2 diabetes mellitus with hyperglycemia Category: Medical (2) Dyslipidemia: Code(s): E78.5 - Hyperlipidemia, unspecified Category: Medical (3) Serum calcium elevated: Code(s): E83.52 - Hypercalcemia Category: Medical Plan . Orders: Orders Complete Blood Count Auto Diff Today E11.65 - Type 2 diabetes mellitus with hyperglycemia, E78.5 - Hyperlipidemia, unspecified Parathyroid Hormone Intact Today E11.65 - Type 2 diabetes mellitus with hyperglycemia, E78.5 - Hyperlipidemia, unspecified Calcium, Ionized Today E11.65 - Type 2 diabetes mellitus with hyperglycemia, E78.5 - Hyperlipidemia, unspecified Comprehensive [place]. Panel Fast Today E11.65 - Type 2 diabetes mellitus with hyperglycemia, E78.5 - Hyperlipidemia, unspecified Lipid Panel Today E11.65 - Type 2 diabetes mellitus with hyperglycemia, E78.5 - Hyperlipidemia, unspecified Medications: New atorvastatin 10 mg PO BEDTIME 90 days 90 tabs 1RF tirzepatide (Mounjaro) for 4 weeks 2.5 mg (0.5 mL) subcut QWEEK 2 mL 1RF
== END 2024-07-22 09:30 | disposition home or self-care (01) ==
LOC: HO.HMCC 07:18
PROVIDERS: PCP Nurse Practitioner Family; Visit Provider Nurse Practitioner Family
DX: E11.65 Type 2 diabetes mellitus with hyperglycemia (principal); E78.5 Hyperlipidemia, unspecified; E83.52 Hypercalcemia

== ENCOUNTER 2024-08-30 09:08 | Outpatient (AMB) | payer OTHER, SELFPAY ==
--- OUTSIDE RECORDS SUMMARY | 2024-08-30 09:11 | XMS_ITS ---
Author Organization [facility] Address [address] [place] [phone] Care Team Providers Care Personal Trainer Name Role Phone MICHAEL Velasquez Primary Care Provider Miguelito Maguire Jr REASON FOR VISIT one week update/hemorrhoids Encounters Encounter Location Date Provider Diagnosis [facility] [address] [place] [phone] 06/29/2023 Miguelito Davidson Jr Plan Of Treatment No Information Progress Notes * BIANCA WYNNEOB:[birth year] (28 yo M)Acc No.[id number]:06/29/2023 Patient:?JAMAAL WYNNE :1995???Age:28 Y???Sex:Male Address:[address] [place] [address], [address] * true * Date:? Generated for Printi ng/Famatiasg/eTransmitting on:?08/30/2024 09:11 AM EDT
--- OUTSIDE RECORDS SUMMARY | 2024-08-30 09:11 | XMS_ITS | Patient Health Record ---
Author Organization [facility] Address [address] [place] [phone] Care Team Providers Care Photo Printer Name Role Phone MICHAEL Velasquez Primary Care Provider Miguelito Maguire Jr Unavailable Allergies No Known Allergies Reason For Referral No Information Medications Medication SIG (Take, Route, Frequency, Duration) Notes Start Date End Date Status Doxycycline Hyclate 100 MG Oral for 14 Active Pantoprazole Sodium 40 MG TAKE 1 TABLET BY MOUTH TWICE A DAY for 90 Active FreeStyle Lite w/Device for 1 Active MiraLax (colon prep) 17 GM/SCOOP mixed with Gatorade or Crystal Light Orally begin at 5:00 p.m. the day before the procedure for 1 day 11/13/2022 Active FreeStyle [place] Lite w/Device for 30 Active FreeStyle Lancets - for 50 Active Sertraline HCl 25 MG Oral for 90 Active metFORMIN HCl ER 500 MG Oral for 90 Active Immunizations Vaccine Route Administration Date Status Comme nts Influenza Unknown 12/11/2018 Refused Influenza Unknown 04/14/2020 Refused Influenza Unknown 07/06/2021 Refused Social History Tobacco Use: Social History Observation Description Date Details (start date - stop date) Never Smoker NA - NA Tobacco Use/Smoking Question Answer Notes Patient is a nonsmoker Alcohol Screen Question Answer Notes Did you have a drink contain ing alcohol in the past year? Yes How often did you have a dri nk containing alcohol in the past year? 2 to 3 times a week (3 points) How many drinks did you have on a typical day when you were drinking in the past year? 1 or 2 drinks (0 point) How often did you have 6 or more drinks on one occasion in the past year? Never (0 point) Points 3 Interpretation Negative Section Notes: Drink anything but tequila Drink anything but tequila Drink anything but tequila Drink anything but tequila Problems Problem Type SNOMED Code ICD Code Onset Dates Problem Status W/U Status Risk Notes Problem 47447068 Rectal bleeding (K62.5) Active confirmed Problem 147468566 Change in bowel habit (R19.4) Active confirmed Problem 900014848 Fatty (change of ) liver, not elsewhere classified (K76.0) Active confirmed Problem 652129700 Generalized abdominal pain (R10.84) Active confirmed Problem 042509195 Abnormal celiac antibody panel (R89.4) Active confirmed Problem 951196866 Gastroesophageal reflux disease without esophagitis (K21.9) Active confirmed Problem 070339112 Vomiting, intractability of vomiting not specified, presence of nausea not specified, unspecified vomiting type (R11.10) Active confirmed Plan Of Treatment Pending Test Test Name Order Date LIVER PROFILE 10/05/2020 CT ABD & PELVIS WITH CONTRAST 07/06/2021 Future Test Test Name Order Date UPPER GI ENDOSCOPY 12/11/2018 COLONOSCOPY 11/13/2022 Insurance Providers Payer Name Payer Address Payer Phone Subscriber Number Group Number Insured Name Patient Relationship to Insured Coverage Start Date Coverage End Date [facility] [employer] [address] [place] [id number] JAMAAL WYNNE Self - patient is the insured Medical (General) History Medical History History ICD Code nephrolithiasis back pain/disc problems EGD, for GERD and abnormal c eliac antibody panel 01/16, normal exam, no celiac disease, H. pylori, or Renee's esophagus on biopsy Diabetes mellitus Surgical History Surgery Date(Month/Year) Dental extractions, wisdom teeth Hospitalization History Reason Date(Month/Year)
--- OUTSIDE RECORDS SUMMARY | 2024-08-30 09:11 | XMS_ITS ---
Author Organization [facility] Address [address] [place] [phone] Care Team Providers Care Pai Gow Dealer Name Role Phone MICHAEL Velasquez Primary Care Provider Miguelito Maguire Jr [phone] Encounters Encounter Location Date Provider Diagnosis [facility] [address] [facility] [address] [place] [phone] 06/22/2023 Miguelito Davidson Jr Plan Of Treatment No Information Progress Notes * RICCIROSALEEDEEPAKOB:[birth year] (28 yo M)Acc No.[id number]:06/22/2023 Patient:?JAMAAL WYNNE :1995???Age:28 Y???Sex:Male Address:[address] [place] [address] [place], [address] * true * Date:? Generated for Printi ng/Famatiasg/eTransmitting on:?08/30/2024 09:10 AM EDT
[2024-08-30 09:50] VITALS: BP 130/74; PULSE 80; TEMP 36.9; O2SAT 98
--- NOTE | 2024-08-30 09:50 | AM.OFFWIN_ITS ---
Intake Vital Signs 08/30/24 09:50 Height 5 ft 11 in BMI Reason not done Patient refused/unable BP 130/74 Blood Pressure Location Lt brachial Position Sitting Pulse 80 Pulse Source Pulse Oximeter Temp 98.4 F Temp Source Oral Pulse Oximetry (%) 98 Oxygen Delivery Method Room Air Intake Visit Reasons: EP Rash lower ankle, toenail discoloration Patient Tobacco Use Status: Never used Tobacco Allergies No Known Allergies (No Known Allergies*) Allergy (Verified 10/30/24 14:28) Do you need a note to return to daycare/school/sports/work: No HPI EP Rash lower ankle, toenail discoloration HPI Details Patient is a 29-year-old male with diabetes, who comes to the walk-in clinic complaining of discoloration to bilateral big toes and brownish spots to the bilateral ankles for the last few months. There is no pain to the areas, swelling, warmth, numbness or tingling distally, or other concerning symptoms. He has a history of uncontrolled diabetes, and was concerned that this could be worrisome. No report of fever chills, weakness, myalgias or malaise, nausea vomiting or diarrhea, or other systemic symptoms of infection or worrisome symptoms. [facility] Medical History Tinnitus, bilateral Positive autoantibody screening for celiac disease Fatty liver Kidney stones Bulging discs Surgical History H/O endoscopy History of wisdom tooth extraction No pertinent past surgical history Family History Father No problems noted. Mother No problems noted. Social History Housing: House Alcohol intake: current Alcohol intake frequency: a few times a month Patient Tobacco Use Status: Never used Tobacco e-Cigarette/Vaping Use: Never Used Second Hand Smoke Exposure: Yes (at work ) service: Yes Current occupational status: employed Current occupation: [id number] Current occupational exposures/hazards: Yes Cognitive needs: No Hearing needs: No Vision needs: No Review of Systems Const All systems reviewed & are unremarkable except as noted in HPI and below Physical Exam Vital Signs: Last Vital Signs Temp 98.4 F 08/30/24 09:50 Pulse 80 08/30/24 09:50 BP 130/74 08/30/24 09:50 Pulse Ox 98 08/30/24 09:50 Oxygen Delivery Method Room Air 08/30/24 09:50 Skin Other: Bilateral ankles with brown pigmented macules, appearing as ephelides, or small solar lentigines. Bilateral toenails mildly yellowish towards the distal ends bilaterally. Otherwise ankles and feet are without erythema, edema or warmth. No ecchymosis or cyanosis. 2+ pulses dorsalis pedis pulses and posterior tibialis pulses. Assessment & Plan Assessment & Plan (1) Nail discoloration: Code(s): L60.8 - Other nail disorders Plan Patient has yellowish nail discoloration to the bilateral big toenails, possibly early fungal infection. I advised to use topical nail antifungal, such as Funginail until he is able to get into a exhaust and muffler fitter. Referral given today. He also has noticed increase in brownish macules to the bilateral ankles. He does have scattered methylene days to his body, including his lower extremities, in his possible that he is just developing more to the lower ankles. He also could have solar lentigines due to sun exposure to the area. Either way, they look benign in origin and not acutely worrisome for his diabetes, which is what he was concerned about. I advised he continue to follow up with primary care as recommended for the diabetes next month, use sunscreen unexposed areas of skin, and I put through a referral to a exhaust and muffler fitter for him. Orders: Referrals Dermatology Referral L60.8 - Other nail disorders Coding Level of Care Code Est Pt Level 4 (64397) Diagnoses Nail discoloration L60.8
== END 2024-08-30 11:30 | disposition home or self-care (01) ==
PROVIDERS: PCP Nurse Practitioner Family; Visit Provider Physician Assistant Medical
DX: L60.8 Other nail disorders (principal)

== ENCOUNTER → 2024-08-30 09:08 | Outpatient (BNVA) | payer OTHER, SELFPAY | PROVIDERS: PCP Nurse Practitioner Family; Visit Provider Physician Assistant Medical ==

== ENCOUNTER 2024-10-21 08:41 | Outpatient (AMB) | payer OTHER, SELFPAY ==
--- NOTE | 2024-10-21 07:55 | A.OFFPC_ITS ---
Intake Visit Reasons: 3 month follow up Allergies No Known Allergies (No Known Allergies*) Allergy (Verified 10/21/24 08:03) Medication List - Last Reconciled 10/21/24 by PEACE Rashid- alcohol swabs (Alcohol Prep Pads) 1 pad topically; atorvastatin 20 mg PO BEDTIME 90 days blood-glucose meter (FreeStyle Lite Meter kit) test BID FreeStyle Lite Strips (blood sugar diagnostic) test BID NS lancets (FreeStyle Lancets) test BID metformin ER 1,000 mg (2 x 500 mg) PO BID 90 days pantoprazole 40 mg PO DAILY semaglutide 1 mg (0.75 mL) subcut QWEEK sertraline 25 mg PO BEDTIME Tobacco use date assessed: 03/27/22 [facility] 3 month follow up HPI Details History of Present Illness The patient is a 29-year-old male presenting with uncontrolled diabetes mellitus. His last recorded hemoglobin A1c was 10.2% in May, indicating poor glycemic control. He is currently on Ozempic, which he tolerates but experiences significant gastrointestinal discomfort, particularly gas, during the initial days of medication use. The patient has not been regularly monitoring his blood glucose levels, which is crucial for managing his condition. He denies experiencing neuropathy, polyuria, polydipsia, chest pain, or dyspnea. In terms of lipid management, the patient is advised to increase his ator vastatin dosage to 20 mg at night to address hyperlipidemia. He has been encouraged to undergo an annual eye examination as part of his diabetes management plan. Review of Systems - Endocrine: Denies polyuria, polydipsia . - Neurological: Denies neuropathy. - Cardiovascular: Denies chest pain. - Respiratory: Denies dyspnea. Plan The patient will continue on Ozempic for diabetes management, with the addition of simethicone to alleviate gastrointestinal discomfort associated with the medication. His atorvastatin dosage will be increased to 20 mg at night to better manage his hyperlipidemia. He is advised to regularly monitor his blood glucose levels and to obtain laboratory tests, including a repeat hemoglobin A1c, prior to the next follow-up visit in three weeks. The importance of an annual eye examination was emphasized as part of his diabetes care. Discussion Notes I discussed with the patient the importance of maintaining tight glucose control and the need for regular blood sugar monitoring. We talked about the gastrointestinal side effects of Ozempic and the potential benefit of simethicone to manage these symptoms. I advised increasing his atorvastatin dosage to manage his cholesterol levels and emphasized the importance of an annual eye examination. Follow-up is scheduled in three weeks, and I encouraged him to complete his lab work, including a repeat A1c, before this appointment. Patient Instructions - Continue taking Ozempic as prescribed. - Take simethicone to help with gas disc omfort. - Increase atorvastatin to 20 mg at nigh t. - Monitor blood sugar levels regularly. - Schedule and attend an annual eye exam . - Complete lab work, including A1c, befo re the next visit in three weeks. [facility] Medical History Tinnitus, bilateral Positive autoantibody screening for celiac disease Fatty liver Kidney stones Bulging discs Surgical History H/O endoscopy History of wisdom tooth extraction No pertinent past surgical history Family History Father No problems noted. Mother No problems noted. Social History Housing: House Alcohol intake: current Alcohol intake frequency: a few times a month Patient Tobacco Use Status: Never used Tobacco e-Cigarette/Vaping Use: Never Used Second Hand Smoke Exposure: Yes (at work ) service: Yes Current occupational status: employed Current occupation: [employer] Current occupational exposures/hazards: Yes Cognitive needs: No Hearing needs: No Vision needs: No Questionnaire Thrive Questionnaire Date Thrive assessed: 07/28/21 SAHARA-7 AMB Questionnaire SAHARA-7 Date SAHARA - 7 assessed: 07/28/21 Source: Developed by Drs. Braulio Michael, Nancy Pepe, Carlyle Herrmann and colleagues, with an educational robby from [employer]. Physical exam (Primary Care) Tobacco/Smoking Status: Tobacco use Status Tobacco use date assessed 03/27/22 07/22/24 07:34 Patient Tobacco Use Status Never used Tobacco 08/30/24 09:50 e-Cigarette/Vaping Use Never Used 07/22/24 07:34 Thrive Assessment: Date of Thrive Assessment Date Thrive assessed 07/28/21 07/22/24 07:34 Coding Level of Care Code Tele Est Pt Level 3 (87210) Diagnoses Poorly controlled diabetes mellitus E11.65 Assessment & Plan Assessment & Plan (1) Poorly controlled diabetes mellitus: Code(s): E11.65 - Type 2 diabetes mellitus with hyperglycemia Category: Medical Plan . Orders: Orders Complete Blood Count Auto Diff Today E11.65 - Type 2 diabetes mellitus with hyperglycemia Comprehensive [place]. Panel Fast Today E11.65 - Type 2 diabetes mellitus with hyperglycemia UA CC w/rflx Micro + Cult Today E11.65 - Type 2 diabetes mellitus with hyperglycemia Hemoglobin A1c Today E11.65 - Type 2 diabetes mellitus with hyperglycemia TSH reflex Free T4 Today E11.65 - Type 2 diabetes mellitus with hyperglycemia Lipid Panel Today E11.65 - Type 2 diabetes mellitus with hyperglycemia Medications: Changed From atorvastatin 10 mg PO BEDTIME 90 days 90 tabs 1RF To atorvastatin 20 mg PO BEDTIME 90 tabs 1RF 90 days
--- OUTSIDE RECORDS SUMMARY | 2024-10-21 09:00 | XMS_ITS | Patient Health Record ---
Author Organization [facility] Address [address] [place] [id number] Care Team Providers Care Air Tester Name Role Phone MICHAEL Velasquez Primary Care Provider Miguelito Maguire Jr Unavailable Allergies No Known Allergies Reason For Referral No Information Medications Medication SIG (Take, Route, Frequency, Duration) Notes Start Date End Date Status Doxycycline Hyclate 100 MG Oral for 14 Active FreeStyle Lite w/Device for 1 Active Pantoprazole Sodium 40 MG TAKE 1 TABLET BY MOUTH TWICE A DAY for 90 Active MiraLax (colon prep) 17 GM/SCOOP mixed with Gatorade or Crystal Light Orally begin at 5:00 p.m. the day before the procedure for 1 day 11/13/2022 Active FreeStyle [place] Lite w/Device for 30 Active FreeStyle Lancets [...] Problem Status W/U Status Risk Notes Problem 78380398 Rectal bleeding (K62.5) Active confirmed Problem 177792977 Change in bowel habit (R19.4) Active confirmed Problem 912839880 Fatty (change of ) liver, not elsewhere classified (K76.0) Active confirmed Problem 589624705 Generalized abdominal pain (R10.84) Active confirmed Problem 940098059 Abnormal celiac antibody panel (R89.4) Active confirmed Problem 057612212 Gastroesophageal reflux disease without esophagitis (K21.9) Active confirmed Problem 503759852 Vomiting, intractability of vomiting not specified, presence of nausea not specified, unspecified vomiting type (R11.10) Active confirmed Encounters Encounter Location Date Provider Diagnosis [facility] [address] [place] [address] 10/01/2024 Miguelito Davidson Jr Plan Of Treatment Pending Test Test Name Order Date LIVER PROFILE 10/05/2020 CT ABD & PELVIS WITH CONTRAST 07/06/2021 Future Test Test Name Order Date UPPER GI ENDOSCOPY 12/11/2018 COLONOSCOPY 11/13/2022 Next Appt Details Provider Name:Miguelito garcia Jr, 01/21/2025 10:00:00 AM, [address] [place] [address], [address], [place], [address], Insurance Providers Payer Name Payer Address Payer Phone Subscriber Number Group Number Insured Name Patient Relationship to Insured Coverage Start Date Coverage End Date [facility] [employer] [address] [place] [address] [phone] [id number] JAMAAL WYNNE Self - patient is the insured Medical (General) History Medical History History ICD Code nephrolithiasis back pain/disc problems EGD, for GERD and abnormal c eliac antibody panel 01/16, normal exam, no celiac disease, H. pylori, or Renee's esophagus on biopsy Diabetes mellitus Surgical History Surgery Date(Month/Year) Dental extractions, wisdom teeth Hospitalization History Reason Date(Month/Year)
== END 2024-10-21 09:03 | disposition home or self-care (01) ==
LOC: HO.HMCC 08:41
PROVIDERS: PCP Nurse Practitioner Family; Visit Provider Nurse Practitioner Family
DX: E11.65 Type 2 diabetes mellitus with hyperglycemia (principal)

== ENCOUNTER → 2024-10-21 08:41 | Outpatient (BNVA) | payer OTHER, SELFPAY | PROVIDERS: PCP Nurse Practitioner Family; Visit Provider Nurse Practitioner Family | DX: Z13.89 Encounter for screening for other disorder (principal); E11.65 Type 2 diabetes mellitus with hyperglycemia; E78.5 Hyperlipidemia, unspecified; E83.52 Hypercalcemia ==

== ENCOUNTER 2024-10-30 10:21 | Outpatient (REF) | payer OTHER, SELFPAY ==
--- OUTSIDE RECORDS SUMMARY | 2024-10-30 11:04 | XMS_ITS | Patient Health Record ---
Author Organization [facility] Address [address] [place] [id number] Care Team Providers Care Direct Customer Service Representative Name Role Phone MICHAEL Velasquez Primary Care [...] procedure for 1 day 11/13/2022 Active FreeStyle [place] Lite w/Device for 30 Active FreeStyle Lancets [...] Problem Status W/U Status Risk Notes Problem 83552556 Rectal bleeding (K62.5) Active confirmed Problem 201721877 Change in bowel habit (R19.4) Active confirmed Problem 675167366 Fatty (change of ) liver, not elsewhere classified (K76.0) Active confirmed Problem 167490797 Generalized abdominal pain (R10.84) Active confirmed Problem 331452653 Abnormal celiac antibody panel (R89.4) Active confirmed Problem 281621573 Gastroesophageal reflux disease without esophagitis (K21.9) Active confirmed Problem 443679597 Vomiting, intractability of vomiting not specified, presence of nausea not specified, unspecified vomiting type (R11.10) Active confirmed Encounters Encounter Location Date Provider Diagnosis [facility] [address] [place] [address] 10/01/2024 Miguelito Davidson Jr Plan Of Treatment Pending Test Test Name Order Date LIVER PROFILE 10/05/2020 CT ABD & PELVIS WITH CONTRAST 07/06/2021 Future Test Test Name Order Date UPPER GI ENDOSCOPY 12/11/2018 COLONOSCOPY 11/13/2022 Next Appt Details Provider Name:Miguelito garcia Jr, 01/21/2025 10:00:00 AM, [address] [place] [address], [address], [place], [address], Insurance Providers Payer Name Payer Address Payer Phone Subscriber Number Group Number Insured Name Patient Relationship to Insured Coverage Start Date Coverage End Date [facility] [employer] [address] [place] [address] [id number] JAMAAL WYNNE Self - patient is the insured Medical (General) History Medical History History ICD Code nephrolithiasis back pain/disc problems EGD, for GERD and abnormal c eliac antibody panel 01/16, normal exam, no celiac disease, H. pylori, or Renee's esophagus on biopsy Diabetes mellitus Surgical History Surgery Date(Month/Year) Dental extractions, wisdom teeth Hospitalization History Reason Date(Month/Year)
[2024-10-30 13:10] LABS: MANUAL DIFF FLAG NO
[2024-10-30 13:13] LABS: Appearance Urine Clear; Glucose Urine UA 500 mg/dL (Negative); PH 7.0 (5.0-9.0); Specific Gravity - Urine >= 1.030 (1.005-1.025)
[2024-10-30 13:27] LABS: Hematocrit 42.9 % (42.0-52.0); Hemoglobin 14.3 g/dl (14.0-18.0); Imm Gran Abs Auto 0.02 X10*3/uL (0.00-0.03); Imm Gran Pct Auto 0.3 % (0.0-0.4); Lymphocytes Absolute Auto 1.6 X10*3/uL (1.2-4.9); Mean Corpuscular HGB Conc 33.3 g/dl (31.0-36.0); Mean Corpuscular Hemoglobin 30.5 pg (27.0-33.0); Mean Corpuscular Volume 91.5 fL (80.0-98.0); NRBC Abs Auto 0.000 X10*3/uL (0.0-0.012); NRBC Pct Auto 0.0 /100WBC (0.0-0.2); Platelet Count 205 X10*3/uL (160-400); Red Blood Count 4.69 X10*6/uL (4.60-5.80); White Blood Count 6.1 X10*3/uL (4.8-10.8)
[2024-10-30 13:40] LABS: Hemoglobin A1C 273.6760 umol/L; Total Hemoglobin (HGBA1C) 3727.9978 umol/L
[2024-10-30 13:51] LABS: Parathyroid Hormone Intact 58.4 pg/mL (8.7-77.1)
[2024-10-30 13:58] LABS: Alanine Aminotransferase 200 U/L (0-40); Albumin Level 4.7 g/dL (3.5-5.0); Alkaline Phosphatase 86 U/L (39-117); Anion Gap 12 (12-20); Aspartate Amino Transferase 79 U/L (5-37); Blood Urea Nitrogen 9 mg/dL (9-16); Calcium 9.7 mg/dL (8.4-10.2); Carbon Dioxide 27 mmol/L (22-29); Chloride 103 mmol/L (96-108); Cholesterol 182 mg/dL (<200); Estimated Glomerular Filt Rate > 60; HDL Cholesterol 42 mg/dL (>40); Potassium 4.3 mmol/L (3.3-5.1); Sodium 138 mmol/L (135-145); Total Protein 7.9 g/dL (6.5-8.0); Triglycerides 209 mg/dL (<150)
[2024-11-03 17:18] LABS: Calcium, Ionized 5.2 mg/dL (4.7-5.5)
== END 2024-10-30 10:22 | disposition home or self-care (01) ==
LOC: HO.HMGCLDS 10:21
PROVIDERS: PCP Nurse Practitioner Family; Visit Provider Nurse Practitioner Family
DX: Z00.01 Encounter for general adult medical examination with abnormal findings (principal); E11.65 Type 2 diabetes mellitus with hyperglycemia; E78.5 Hyperlipidemia, unspecified; E66.01 Morbid (severe) obesity due to excess calories; Z68.42 Body mass index [BMI] 45.0-49.9, adult; Z13.31 Encounter for screening for depression; Z13.39 Encounter for screening examination for other mental health and behavioral disorders
CPT/HCPCS: 36415; 80053; 80061; 81003; 82330; 83036; 83970; 84443; 85025; 96127

== ENCOUNTER 2024-10-30 13:54 | Outpatient (AMB) | payer OTHER, SELFPAY ==
--- NOTE | 2024-10-30 14:01 | A.OFFPC_ITS ---
Vital Signs 10/30/24 14:02 Height 5 ft 11 in Weight 336 lb BMI 46.9 BP 118/78 Blood Pressure Location Rt brachial Position Sitting Pulse 80 Pulse Source Pulse Oximeter Pulse Oximetry (%) 98 Oxygen Delivery Method Room Air Intake Visit Reasons: Annual [employer] Professor Required: No Allergies No Known Allergies (No Known Allergies*) Allergy (Verified 10/30/24 14:28) Medication List - Last Reconciled 10/30/24 by EDWIN Rashid alcohol swabs (Alcohol Prep Pads) 1 pad topically; atorvastatin 20 mg PO BEDTIME 90 days blood-glucose meter (FreeStyle Lite Meter kit) test BID FreeStyle Lite Strips (blood sugar diagnostic) test BID NS lancets (FreeStyle Lancets) test BID metformin ER 1,000 mg (2 x 500 mg) PO BID 90 days pantoprazole 40 mg PO DAILY semaglutide 2 mg (0.75 mL) subcut QWEEK sertraline 25 mg PO BEDTIME Tobacco use date assessed: 10/30/24 Dental Screening Dental Screen Date: 10/30/24 Did you have a dental visit in the last 12 months?: Yes Did you have a dental problem in the last 6 months where you did not have access to dental care?: No Was dental information given to patient?: Patient has dentist HPI Annual PE HPI Details History of Present Illness The patient is a 29-year-old male presenting for a physical examination and management of diabetes. He has a history of Type 2 Diabetes Mellitus, with a recent hemoglobin A1c level of 8.9, indicating poor glycemic control. He is resistant to regular fingerstick glucose monitoring but uses a glucose monitor intermittently when he feels unwell. His medication regimen includes semaglutide, which is being increased from 1 mg to 2 mg to improve glycemic control. The patient is also morbidly obese and has elevated liver enzymes, consistent with a history of fatty liver disease. He is actively working on dietary modifications and reports some weight loss. He denies any symptoms of neuropathy, and his neurological examination shows positive sensation in his feet with monofilament testing. His cholesterol levels are improving with an increased dose of statins. Health Maintenance - Monitoring of liver enzymes and glucos e levels - Dietary modifications for weight loss Social History - Diet: Actively working on dietary sami fications and reports some weight loss Review of Systems - Neurological: Denies neuropathy -denies any cp, sob, n/v, constipation, diarrhea, urinary issues, SI or HI Physical Exam General: Cooperative, healthy appearing, comfortable, no acute distress and well developed, morbid obesity Orientation: Patient oriented x3 Limitations: No limitations Head: Normal to inspection Ears: Hearing grossly normal bilaterally Nose: Normal external nose present Face and sinus: Normal facial exam Eyes: Appearance normal, both eyes and all related structures Neck: Normal visual inspection and Yes full ROM Respiratory: Normal respiratory effort and able to speak in complete sentences. Clear to auscultation bilaterally Cardiovascular: Regular rate and rhythm. Normal S1 and S2 GI: Normal to inspection. Soft to palpation and nontender Skin: No rashes or lesions noted Neuro: Patient oriented x3 Extremities: Normal to inspection, positive sensation to feet with monofilament, feet intact Results - Labs: Hemoglobin A1c 8.9, elevated lane er enzymes Plan The patient's diabetes management plan includes increasing the dose of semaglutide from 1 mg to 2 mg to improve glycemic control. He is encouraged to continue using his glucose monitor, despite his reluctance, to better manage his blood sugar levels. For his obesity and fatty liver disease, the patient is advised to maintain dietary modifications and continue his efforts in weight loss. Regular monitoring of liver enzymes is recommended to assess the impact of these lifestyle changes. Follow-up is scheduled in four months to reassess his diabetes management and monitor lab results. Discussion Notes I discussed with the patient the importance of increasing his semaglutide dose to better control his diabetes and encouraged him to use his glucose monitor regularly. We also talked about the need for dietary changes to address his obesity and fatty liver disease, and I emphasized the importance of regular follow-up and lab monitoring. Patient Instructions - Increase semaglutide dose to 2 mg as p rescribed - Use glucose monitor regularly to track blood sugar levels - Continue dietary modifications to aid weight loss - Return for follow-up in four months wi lab results -encouraged pt to call for a eye exam [facility] Medical History Tinnitus, bilateral Positive autoantibody screening for celiac disease Fatty liver Kidney stones Bulging discs Surgical History H/O endoscopy History of wisdom tooth extraction No pertinent past surgical history Family History Father No problems noted. Mother No problems noted. Social History Housing: House Alcohol intake: current Alcohol intake frequency: a few times a month Patient Tobacco Use Status: Never used Tobacco e-Cigarette/Vaping Use: Never Used Second Hand Smoke Exposure: Yes (at work ) service: Yes Current occupational status: employed Current occupation: [employer] Current occupational exposures/hazards: Yes Cognitive needs: No Hearing needs: No Vision needs: No Questionnaire PHQ-9 Over the last 2 weeks, how often have you been bothered by any of the following problems? 1. Little interest or pleasure in doing things: not at all 2. Feeling down, depressed, or hopeless: not at all 3. Trouble falling or staying asleep, or sleeping too much: not at all 4. Feeling tired or having little energy: not at all 5. Poor appetite or overeating: not at all 6. Feeling bad about yourself - or that you are a failure or have let yourself or your family down: not at all 7. Trouble concentrating on things, such as reading the newspaper or watching television: not at all 8. Moving or speaking so slowly that other people could have noticed. Or the opposite - being so fidgety or restless that you have been moving around a lot more than usual: not at all 9. Thoughts that you would be better off or of hurting yourself in some way: not at all Total score: 0 Depression Screening Interpretation: Negative Depression Screening Done: Yes 47966 - PHQ-9 Billing: Yes Source: Developed by Drs. Braulio Michael, Nancy Pepe, Carlyle Herrmann and colleagues, with an educational robby from [employer]. Thrive Questionnaire Date Thrive assessed: 10/30/24 I am a: Patient What is your living situation today?: I have a steady place to live Within the past 12 months, did the food you bought not last and you didn't have the money to get more?: Never true Within the past 12 months, did you worry whether your food would run out before you got money to buy more?: Never true Do you have trouble paying for medicines?: No Do you have trouble getting transportation to medical appointments?: No Do you have trouble paying your heating and electricity bill?: No Do you have trouble taking care of your child, family member or friend?: No Do you have trouble with day-to-day activities such as bathing, preparing meals, shopping, managing finances, etc.?: No Are you currently unemployed and looking for a job?: No Are you interested in more education?: No Please select the resources that you would like help with: None Currently or been in a relationship where the following occur: No concerns reported THRIVE Score: 0 AUDIT C Alcohol Use Questionnaire (AUDIT-C) 1. How often do you have a drink containing alcohol?: 2-4 times a month 2. How many drinks containing alcohol do you have on a typical day when you are drinking?: 1 or 2 3. How often do you have six or more drinks on one occasion?: Less than monthly Total Score: 3 Score Reviewed/Action Taken: Yes SAHARA-7 AMB Questionnaire SAHARA-7 Date SAHARA - 7 assessed: 10/30/24 Feeling nervous, anxious, or on edge: 0 = Not at all Not being able to stop or control worryin = Not at all Worrying too much about different things: 0 = Not at all Trouble relaxin = Not at all Being so restless that it is hard to sit still: 0 = Not at all Becoming easily annoyed or irritable: 0 = Not at all Feeling afraid as if something awful might happen: 0 = Not at all Total SAHARA-7 score (0-4 normal; 5-9 mild; 10-14 moderate; 15-21 severe): 0 Source: Developed by Drs. Braulio Michael, Nancy Pepe, Carlyle Herrmann and colleagues, with an educational robby from [employer]. SAHARA-7 Assessment Billing SAHARA-7 Assessment Tool: SAHARA-7 Assessment 89649 Physical exam (Primary Care) Vital Signs: Last Vital Signs Pulse 80 10/30/24 14:02 BP 118/78 10/30/24 14:02 Pulse Ox 98 10/30/24 14:02 Oxygen Delivery Method Room Air 10/30/24 14:02 BMI result Body Mass Index 46.9 Tobacco/Smoking Status: Tobacco use Status Tobacco use date assessed 10/30/24 10/30/24 14:05 Patient Tobacco Use Status Never used Tobacco 10/30/24 14:05 e-Cigarette/Vaping Use Never Used 10/30/24 14:05 PHQ-9: PHQ-9 Score PHQ-9: Total score 0 10/30/24 14:05 Depression Screening Interpretation: Negative Thrive Assessment: Date of Thrive Assessment Date Thrive assessed 10/30/24 10/30/24 14:05 Currently or been in a relationship where the following occur: No concerns reported Coding Level of Care Code Est Pt Prev Care 18-39y(44917) Diagnoses Encounter for routine adult physical exam with abnormal findings Z00.01 Diabetes E11.9 Additional Codes SAHARA-7 Assessment Billing - SAHARA-7 Assessment Tool: SAHARA-7 Assessment 43616 ([id number]) PHQ-9 - 28697 - PHQ-9 Billing: Yes ([id number]) Assessment & Plan Assessment & Plan (1) Encounter for routine adult physical exam with abnormal findings: Code(s): Z00.01 - Encounter for general adult medical examination with abnormal findings Category: Medical (2) Diabetes: Code(s): E11.9 - Type 2 diabetes mellitus without complications Category: Medical Plan . Medications: Changed From semaglutide for 4 weeks 1 mg (0.75 mL) subcut QWEEK 3 mL 1RF To semaglutide for 4 weeks 2 mg (0.75 mL) subcut QWEEK 3 mL 1RF
[2024-10-30 14:02] VITALS: BP 118/78; PULSE 80; O2SAT 98; BMI 46.9
== END 2024-10-30 14:47 | disposition home or self-care (01) ==
LOC: HO.HMCC 13:55
PROVIDERS: PCP Nurse Practitioner Family; Visit Provider Nurse Practitioner Family
DX: Z00.01 Encounter for general adult medical examination with abnormal findings (principal); E11.9 Type 2 diabetes mellitus without complications

== ENCOUNTER 2025-02-16 08:56 | Outpatient (REF) | payer OTHER, SELFPAY ==
--- NOTE | ~2025-02-16 | XR_ITS ---
EXAMINATION: XR LUMBOSACRAL SPINE CLINICAL INFORMATION: M54.5 - Low back pain COMPARISON: Correlated to CT dated January 31, 2017 TECHNIQUE: AP and lateral views FINDINGS: No acute cortical disruption or malalignment. Small marginal osteophyte formation at L2-3, L3-4 and L4-5 levels. No lytic or blastic lesions. XR/XR lumbar spine 2-3V IMPRESSION: Mild multilevel spondylosis. Electronically signed by: Lebron Ramon MD 02/16/2025 09:28 AM EDT
== END 2025-02-16 08:57 | disposition home or self-care (01) ==
LOC: HO.HMGCX 08:56
PROVIDERS: PCP Nurse Practitioner Family; Visit Provider Nurse Practitioner Family
DX: M54.50 Low back pain, unspecified (principal)
CPT/HCPCS: 72100

== ENCOUNTER → 2025-02-16 09:03 | Outpatient (BNV) | payer OTHER, SELFPAY | PROVIDERS: PCP Nurse Practitioner Family; Visit Provider Radiology Diagnostic Radiology | DX: M47.816 Spondylosis without myelopathy or radiculopathy, lumbar region (principal) | CPT/HCPCS: 72100 ==

== ENCOUNTER 2025-03-02 13:34 | Outpatient (AMB) | payer OTHER, SELFPAY ==
[2025-03-02 13:35] VITALS: BP 130/88; PULSE 112; RESP 18; TEMP 36.9; O2SAT 97; BMI 47.1
--- NOTE | 2025-03-02 13:35 | MHC.PC.OV ---
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 History of Present Illness The patient is a 29-year-old male presenting for management of his diabetes. His A1c is elevated at 9.3%, and he is currently taking metformin daily. The patient did not tolerate a GLP-1 agonist in the past. He is up-to-date on his eye exams and microalbumin screening, and he denies symptoms of diabetic neuropathy. The patient also has ongoing, continuous, lower transverse back pain that radiates down his bilateral lower extremities, which he relates to a back injury. He has participated in physical therapy multiple times and [facility] Imaging of the lumbar spine last month revealed multilevel spondylosis. He denies any symptoms of cauda equina. Social History - The patient is part of the [facility]. Health Maintenance - Reports his eye exams are up-to-date. - Microalbumin screening is up-to-date. -declines vaccinations Review of Systems - Neurological: Denies neuropathy related to diabetes. - Reports nerve-related shooting pains in the bilateral lower extremities secondary to a lower back injury. - Denies symptoms of cauda equina syndrome. - Musculoskeletal: Reports ongoing, continuous, lower transverse back pain radiating down his bilateral extremities. -denies any cp or sob Physical Exam General: Cooperative, healthy appearing, comfortable, no acute distress and well developed, but morbidly obese Orientation: Patient oriented x3 Limitations: No limitations Head: Normal to inspection Ears: Hearing grossly normal bilaterally Nose: Normal external nose present Face and sinus: Normal facial exam Eyes: Appearance normal, both eyes and all related structures Neck: Normal visual inspection and Yes full ROM Respiratory: Normal respiratory effort and able to speak in complete sentences. Clear to auscultation bilaterally Cardiovascular: Regular rate and rhythm. Normal S1 and S2 GI: Normal to inspection. Soft to palpation and nontender Skin: No rashes or lesions noted Neuro: Patient oriented x3 Extremities: Positive straight leg raises. Feet intact bilaterally, positive sensation with use of monofilament of feet. Able to heel and toe walk, but some discomfort with toe walking. Normal to inspection Results - Labs: A1c is 9.3%. - Microalbumin is up-to-date. - Imaging: Lumbar spine imaging from last month showed multilevel spondylosis. Plan 1. Diabetes The patient's A1c is 9.3%, indicating poor glycemic control on metformin. He has a history of intolerance to a GLP-1 agonist. The plan is to add an SGLT-2 inhibitor to his regimen and to start an MG inhibitor for renal protection. The patient was counseled on the side effects of the new medication, including the risk of yeast infections, especially as he is uncircumcised, and he verbalized understanding. 2. Lower Back Pain The patient has ongoing, continuous lower back pain with radiation down his bilateral extremities and positive straight leg raises. Imaging from last month showed multilevel spondylosis. He has previously completed multiple courses of physical therapy. Due to persistent symptoms, an MRI of the lumbar spine will be ordered for further evaluation. Discussion Notes I will start the patient on an MG inhibitor for renal protection and an SGLT-2 inhibitor for his diabetes, as he did not tolerate a GLP-1 agonist. We discussed the side effects of the SGLT-2 inhibitor, particularly the increased risk of yeast infections, and the patient, who is uncircumcised, stated he is very clean and knows to watch for symptoms. Regarding his lower back pain, given that he has already participated in physical therapy multiple times and his last imaging showed multilevel spondylosis, I believe he is due for an MRI. Patient Instructions - You will start a new medication, an SGLT-2 inhibitor, for your diabetes. - You will also start a new medication called an MG inhibitor to help protect your kidneys. - Watch for any signs of a yeast infection, such as redness, itching, or discharge, and contact the office if you notice these symptoms. - Continue taking your metformin every day. - We will be scheduling an MRI for your lower back to investigate your ongoing pain. [facility] Medical History Tinnitus, bilateral Positive autoantibody screening for celiac disease Fatty liver Kidney stones Bulging discs Surgical History H/O endoscopy History of wisdom tooth extraction No pertinent past surgical history Family History Father No problems noted. Mother No problems noted. Social History Housing: House Alcohol intake: current Alcohol intake frequency: a few times a month Patient Tobacco Use Status: Never used Tobacco e-Cigarette/Vaping Use: Never Used Second Hand Smoke Exposure: Yes (at work ) service: Yes Current occupational status: employed Current occupation: [employer] Current occupational exposures/hazards: Yes Cognitive needs: No Hearing needs: No Vision needs: No Questionnaire PHQ-9 Over the last 2 weeks, how often have you been bothered by any of the following problems? 1. Little interest or pleasure in doing things: not at all 2. Feeling down, depressed, or hopeless: not at all 3. Trouble falling or staying asleep, or sleeping too much: not at all 4. Feeling tired or having little energy: not at all 5. Poor appetite or overeating: not at all 6. Feeling bad about yourself - or that you are a failure or have let yourself or your family down: not at all 7. Trouble concentrating on things, such as reading the newspaper or watching television: not at all 8. Moving or speaking so slowly that other people could have noticed. Or the opposite - being so fidgety or restless that you have been moving around a lot more than usual: not at all 9. Thoughts that you would be better off or of hurting yourself in some way: not at all Total score: 0 Depression Screening Interpretation: Negative Depression Screening Done: Yes 61323 - PHQ-9 Billing: Yes Source: Developed by Drs. Braulio Michael, Carlyle Fang and colleagues, with an educational robby from [employer]. Thrive Questionnaire Date Thrive assessed: 10/27/24 I am a: Patient What is your living situation today?: I have a steady place to live Within the past 12 months, did the food you bought not last and you didn't have the money to get more?: Never true Within the past 12 months, did you worry whether your food would run out before you got money to buy more?: Never true Do you have trouble paying for medicines?: No Do you have trouble getting transportation to medical appointments?: No Do you have trouble paying your heating and electricity bill?: No Do you have trouble taking care of your child, family member or friend?: No Do you have trouble with day-to-day activities such as bathing, preparing meals, shopping, managing finances, etc.?: No Are you currently unemployed and looking for a job?: No Are you interested in more education?: No Please select the resources that you would like help with: None Currently or been in a relationship where the following occur: No concerns reported THRIVE Score: 0 SAHARA-7 AMB Questionnaire SAHARA-7 Date SAHARA - 7 assessed: 03/02/25 Feeling nervous, anxious, or on edge: 0 = Not at all Not being able to stop or control worryin = Not at all Worrying too much about different things: 0 = Not at all Trouble relaxin = Not at all Being so restless that it is hard to sit still: 0 = Not at all Becoming easily annoyed or irritable: 0 = Not at all Feeling afraid as if something awful might happen: 0 = Not at all Total SAHARA-7 score (0-4 normal; 5-9 mild; 10-14 moderate; 15-21 severe): 0 Source: Developed by Drs. Braulio Michael, Nancy Pepe, Carlyle Herrmann and colleagues, with an educational robby from [employer]. SAHARA-7 Assessment Billing SAHARA-7 Assessment Tool: SAHARA-7 Assessment 87549 Physical exam (Primary Care) Vital Signs: Last Vital Signs Temp 98.5 F 03/02/25 13:35 Pulse 112 H 03/02/25 13:35 Resp 18 03/02/25 13:35 BP 130/88 03/02/25 13:35 Pulse Ox 97 03/02/25 13:35 Oxygen Delivery Method Room Air 03/02/25 13:35 BMI result Body Mass Index 47.1 Tobacco/Smoking Status: Tobacco use Status Tobacco use date assessed 03/02/25 03/02/25 13:42 Patient Tobacco Use Status Never used Tobacco 03/02/25 13:42 e-Cigarette/Vaping Use Never Used 03/02/25 13:42 PHQ-9: PHQ-9 Score PHQ-9: Total score 0 03/02/25 13:42 Depression Screening Interpretation: Negative Thrive Assessment: Date of Thrive Assessment Date Thrive assessed 10/27/24 03/02/25 13:42 Currently or been in a relationship where the following occur: No concerns reported Results AMB Hemoglobin A1c AMB Hemoglobin A1c 9.3 % Last Edit by Nae Lilly MA on 03/02/25 13:49 Results Reviewed Results Reviewed: Laboratory Last Values Hgb A1c (Clinic) 9.3 % (4.0-6.0) H 03/02/25 13:45 Coding Level of Care Code Est Pt Level 4 (85219) Diagnoses Lumbar back pain M54.5 Poorly controlled diabetes mellitus E11.65 Additional Codes SAHARA-7 Assessment Billing - SAHARA-7 Assessment Tool: SAHARA-7 Assessment 37887 ([id number]) PHQ-9 - 70831 - PHQ-9 Billing: Yes ([id number]) Assessment & Plan Assessment & Plan (1) Lumbar back pain: Code(s): M54.5 - Low back pain Category: Medical (2) Poorly controlled diabetes mellitus: Code(s): E11.65 - Type 2 diabetes mellitus with hyperglycemia Category: Medical Plan . Orders: Orders AMB Hemoglobin A1c Today E11.9 - Type 2 diabetes mellitus without complications MR lumbar spine wo con Today M54.5 - Low back pain Comprehensive [place]. Panel Fast Today E11.65 - Type 2 diabetes mellitus with hyperglycemia UA CC w/rflx Micro + Cult Today E11.65 - Type 2 diabetes mellitus with hyperglycemia Complete Blood Count Auto Diff Today E11.65 - Type 2 diabetes mellitus with hyperglycemia TSH reflex Free T4 Today E11.65 - Type 2 diabetes mellitus with hyperglycemia Lipid Panel Today E11.65 - Type 2 diabetes mellitus with hyperglycemia Medications: New lisinopril 2.5 mg PO DAILY 90 tabs 0RF empagliflozin (Jardiance) 10 mg PO DAILY 30 tabs 2RF 30 days Discontinued semaglutide for 4 weeks Discontinued Reason: Doctor's Order 2 mg (0.75 mL) subcut QWEEK 3 mL 1RF
[2025-03-02 14:14] VITALS: PULSE 92
== END 2025-03-02 14:07 | disposition home or self-care (01) ==
LOC: HO.HMCC 13:34
PROVIDERS: PCP Nurse Practitioner Family; Visit Provider Nurse Practitioner Family
DX: M54.50 Low back pain, unspecified (principal); E11.65 Type 2 diabetes mellitus with hyperglycemia; E11.9 Type 2 diabetes mellitus without complications

== ENCOUNTER → 2025-03-02 13:34 | Outpatient (BNVA) | payer OTHER, SELFPAY | PROVIDERS: PCP Nurse Practitioner Family; Visit Provider Nurse Practitioner Family | DX: E11.65 Type 2 diabetes mellitus with hyperglycemia (principal); M54.50 Low back pain, unspecified | CPT/HCPCS: 83036; 96127 ==